=== PATIENT | female | born 1965 | race Caucasian/White ===

== ENCOUNTER 2024-11-10 14:11 | Emergency (ER) | payer OTHER ==
[~2024-11-10] VITALS: Ht 162.6 cm; Wt 90.9 kg
[2024-11-10 14:16] VITALS: TEMP 98.6
[2024-11-10] MEDS ORDERED: AMLO5TAB66 PO ×2 (14:29→16:46)
[2024-11-10] MEDS ORDERED: OLME20TA68 PO (14:29)
[2024-11-10 14:47] LABS: BASOPHILS % (AUTO) 0.5 % (0.0-2.0); HEMATOCRIT 47.4 % (36-46); HEMOGLOBIN 15.6 g/dL (12.0-16.0); LYMPHOCYTES # (AUTO) 1.9 K/uL (1.0-4.8); LYMPHOCYTES % (AUTO) 24.4 % (22.0-44.0); MEAN CORPUSCULAR HEMOGLOBIN 28.7 pg (26.0-34.0); MEAN CORPUSCULAR VOLUME 87 fL (80-100); MONOCYTES # (AUTO) 0.4 K/uL (0.1-1.0); MONOCYTES % (AUTO) 5.6 % (2.0-9.0); NEUTROPHILS # (AUTO) 5.2 K/uL (1.8-7.7); NEUTROPHILS % (AUTO) 66.5 % (40.0-70.0); PLATELET COUNT (AUTO) 252 K/uL (150-450); RED BLOOD CELL COUNT(AUTO) 5.44 MIL/uL (4.00-5.20); RED CELL DISTRIBUTION WIDTH 13.9 % (11.5-14.5); WHITE BLOOD COUNT (AUTO) 7.8 K/uL (4.5-11.0)
[2024-11-10 14:55] LABS: ANION GAP 7 mmol/L (8-16); CALCIUM, TOTAL 9.3 mg/dL (8.8-10.5); CARBON DIOXIDE 29 mmol/L (22-29); CHLORIDE 105 mmol/L (98-107); CREATININE 0.93 mg/dL (0.60-1.30); GLOMERULAR FILTR. RATE CALC > 60 mL/min (>60); GLUCOSE,RANDOM 176 mg/dL (70-110); POTASSIUM 3.4 mmol/L (3.5-5.1); SODIUM SERUM 140 mmol/L (136-145); UREA NITROGEN, BLOOD 14 mg/dL (7-18)
[2024-11-10 15:03] LABS: TROPONIN I-HIGH SENSITIVITY 11 ng/L (<51)
[2024-11-10] MEDS: POTASSIUM CHLORIDE 20 MEQ ER TABLET PO ONE (16:51)
[2024-11-10] MEDS: AmLODIPine BESYLATE 5 MG TABLET PO ONE (16:51)
[2024-11-10] MEDS: ACETAMINOPHEN 500 MG TABLET PO ONE (16:51)
[2024-11-10 16:53] VITALS: BP 178/100; PULSE 101; RESP 18; O2SAT 99
== END 2024-11-10 17:25 | disposition home or self-care (01) ==
LOC: EMS 14:26
DX: I10 Essential (primary) hypertension (principal); R51.9 Headache, unspecified; R07.89 Other chest pain; Z79.899 Other long term (current) drug therapy
CPT/HCPCS: 71045; 80048; 84484; 85025; 93005; 99285; 36415-L1; 36415-TC

== ENCOUNTER 2024-11-25 18:04 | Emergency (ER) | payer MEDICAID, OTHER ==
[~2024-11-25] VITALS: Ht 157.5 cm; Wt 104.5 kg
[~2024-11-25 18:04] MED LIST: AMLO-258 PO; LABE200T56 PO; LOSA-382 PO
[2024-11-25 18:23] VITALS: BP 160/79; PULSE 77; RESP 18; TEMP 98.6; O2SAT 100
== END 2024-11-25 23:04 | disposition left against medical advice (07) ==
LOC: EMS 18:04
DX: M54.9 Dorsalgia, unspecified (principal); Z53.21 Procedure and treatment not carried out due to patient leaving prior to being seen by health care provider
CPT/HCPCS: 99281; Z7502